=== PATIENT | female | born 1985 | race Two or more races ===

== ENCOUNTER 2024-04-30 09:20 | Outpatient (RCR) | payer MEDICAID, SELFPAY | END 2024-05-18 23:59 | disposition home or self-care (01) | LOC: SCTC 09:20 | PROVIDERS: PCP Specialist; Referring Provider Nurse Practitioner Family; Visit Provider Nurse Practitioner Family | DX: D72.829 Elevated white blood cell count, unspecified (principal); D75.839 Thrombocytosis, unspecified; Z90.81 Acquired absence of spleen | CPT/HCPCS: 99212; G0463 ==

== ENCOUNTER 2024-05-31 09:12 | Outpatient (RCR) | payer MEDICAID, SELFPAY | END 2024-06-15 23:59 | disposition home or self-care (01) | LOC: SCTC 09:12 | PROVIDERS: PCP Specialist; Referring Provider Specialist; Visit Provider Nurse Practitioner Family | DX: Z71.2 Person consulting for explanation of examination or test findings (principal); D72.829 Elevated white blood cell count, unspecified; D75.839 Thrombocytosis, unspecified | CPT/HCPCS: 99212; G0463 ==